=== PATIENT | female | born 1985 | race Caucasian/White ===

== ENCOUNTER 2018-10-09 13:15 | Emergency (ER) | payer BC, OTHER ==
[2018-10-09 13:15] VITALS: BMI 32.2
[2018-10-09 13:21] VITALS: RESP 16; TEMP 99.2; O2SAT 100
[2018-10-09 13:58] VITALS: BP 141/97; PULSE 79
--- NOTE | 2018-10-09 14:28 | ED PDOC ---
HPI: Hypertension/Hypotension Time Seen by Provider: 10/09/18 13:32 Chief Complaint (Nursing): High Blood Pressure Chief Complaint (Provider): High Blood Pressure History Per: Patient History/Exam Limitations: no limitations Onset/Duration Of Symptoms: Hrs Current Symptoms Are (Timing): Still Present Additional Complaint(s): Patient is a 33 y/o female with an extensive PMHx including HTN and hypercholesterolemia who presents to the ED for evaluation of headache and high blood pressure onset one hour prior to arrival. Pt reports she had a headache which she gets when her BP is high, so she went to [facility] here, her BP was 160/102, prompting ER visit in hopes that we can give her something to quickly fix her BP as she cannot see her PMD until tomorrow. Patient reports she is supposed to take Lisinopril daily, however, states she has not refilled her medication for HTN in three months which may be prompting her symptoms. Patient took Tylenol with complete relief of symptoms. Patient denies change in vision, chest pain, current headache, shortness of breath, and dizziness/ lightheadedness. PCP: Dr. Angel Coats Past Medical History Reviewed: Historical Data, Nursing Documentation, Vital Signs Vital Signs: Last Vital Signs Temp 99.2 F 10/09/18 13:17 Pulse 79 10/09/18 13:54 Resp 16 10/09/18 13:17 BP 141/97 H 10/09/18 13:54 Pulse Ox 100 10/09/18 13:17 Primary Care Provider: Angel Coats - Medical History PMH: Fractures (RT.ARM CASTED CHILDHOOD), HTN, Hypercholesterolemia, Sleep Apnea (USES C-PAP) Denies: Chronic Kidney Disease - Surgical History Surgical History: Endoscopy - Family History Family History: States: Unknown Family Hx - Home Medications Home Medications: Ambulatory Orders Medication Instructions Recorded Ibuprofen [Motrin] 600 mg PO Q6 PRN #20 tab 02/11/17 - Allergies Allergies/Adverse Reactions: Allergies Allergy/AdvReac Type Severity Reaction Status Date / Time No Known Allergies Allergy Verified 10/09/18 13:17 Review of Systems ROS Statement: Except As Marked, All Systems Reviewed And Found Negative Eyes: Negative for: Vision Change Cardiovascular: Negative for: Chest Pain, Palpitations, Orthopnea, Light Headedness Respiratory: Negative for: Cough, Shortness of Breath Neurological: Positive for: Headache (resolved). Negative for: Weakness, Numbness, Dizziness Physical Exam - Reviewed Nursing Documentation Reviewed: Yes Vital Signs Reviewed: Yes - Physical Exam Comments: GENERAL APPEARANCE: Patient is awake, alert, oriented x 3, in no acute distress. SKIN: Warm, dry; (-) cyanosis; (-) rash. HEAD: (-) scalp swelling or tenderness, (-) temporal artery tenderness. EYES: (-) conjunctival pallor, (-) scleral icterus. EOMI. PERRL. ENMT: (-) sinus tenderness; mucous membranes are moist. NECK: (-) tenderness, (-) stiffness, (-) meningismus, (-) lymphadenopathy. CHEST AND RESPIRATORY: (-) rales, (-) rhonchi, (-) wheezes; breath sounds equal bilaterally. HEART AND CARDIOVASCULAR: (-) irregularity; (-) murmur, (-) gallop. ABDOMEN AND GI: Soft; (-) tenderness. EXTREMITIES: (-) deformity. NEURO AND PSYCH: Mental status as above. 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 Strength and DTRs symmetric. steady gaot, motor and sensation intact, Babinski normal bilaterally. - ECG O2 Sat by Pulse Oximetry: 100 (RA) Pulse Ox Interpretation: Normal Medical Decision Making Medical Decision Making: Time: 1338 Impression: Headache and High Blood Pressure Plan: Lisinopril 20 mg PO Time: 1430 Patient states she is feeling better and needs to leave Patient advised to followup with primary tomorrow. Patient stable for discharge. Pt has appointment with primary doctor tomorrow, currently asymptomatic, physical exam unremarkable Discussed results, diagnosis, treatment, return precautions and f/u with pt who is understanding, in agreement and stable for dc Scribe Attestation: Documented by Martin De Leon, acting as a scribe forSamanthaxiralph Bravo PA-C. Provider Scribe Attestation: All medical record entries made by the Scribe were at my direction and perso main dictated by me. I have reviewed the chart and agree that the record accurately reflects my personal performance of the history, physical exam, medical decision making, and the department course for this patient. I have also personally directed, reviewed, and agree with the discharge instructions and disposition. Disposition - Clinical Impression Clinical Impression: Hypertension - Patient ED Disposition Is Patient to be Admitted: No Counseled Patient/Family Regarding: Studies Performed, Diagnosis, Need For Followup - Disposition Referrals: Angel Coats MD [Staff Provider] - Disposition: Routine/Home Disposition Time: 14:30 Condition: STABLE Additional Instructions: Thank you for letting us take care of you today. The emergency medical care you received today was directed at your acute symptoms. If you were prescribed any medication, please fill it and take as directed. It may take several days for your symptoms to resolve. Return to the Emergency Department if your symptoms worsen, do not improve, or if you have any other problems. Please contact your doctor in 2 days for re-evaluation and follow up / or call one of the physicians/clinics you have been referred to that are listed on the Patient Visit Information form that is included in your discharge packet. Bring any paperwork you were given at discharge with you along with any medications you are taking to your follow up visit. Our treatment cannot replace ongoing medical care by a primary care provider (PCP) outside of the emergency department. Instructions: High Blood Pressure in Adults Forms: [employer] (Georgian) Print Language: WELSH - POA Present On Arrival: None
== END 2018-10-09 14:31 | disposition home or self-care (01) ==
LOC: H.ER 13:15
DX: I10 Essential (primary) hypertension (principal)